=== PATIENT | female | born 1990 ===

== ENCOUNTER 2018-05-16 09:38 | Emergency (ER) | payer BC, OTHER ==
--- NOTE | 2018-05-16 09:43 | ED PDOC ---
Arrival/HPI - General Chief Complaint: Female Genitourinary Time Seen by Provider: 05/16/18 09:50 Historian: Patient - History of Present Illness Narrative History of Present Illness (Text): 05/16/18 09:54 27 y/o female with no significant PMH presents to the ED c/o vaginal spotting x 2 weeks. LMP 04/23/18. States her menstruation typically lasts 7 days and stops. This time, after her menstruation ended, she experienced light vaginal spotting starting on 05/04/18 that has not ceased. Associated intermittent white/yellow vaginal discharge. Denies fevers, chills, N/V, abdominal pain, diarrhea, constipation, headache, dizziness, vaginal itching, pelvic pain, back pain, chest pain, SOB, or any other associated symptoms. Past Medical History - Provider Review Nursing Documentation Reviewed: Yes - Infectious Disease Hx of Infectious Diseases: None - Psychiatric Hx Psychophysiologic Disorder: No Hx Substance Use: No - Surgical History Other/Comment: circulage - Anesthesia Hx Anesthesia: Yes Hx Anesthesia Reactions: No - Suicidal Assessment Feels Threatened In Home Enviroment: No Family/Social History - Physician Review Nursing Documentation Reviewed: Yes Family/Social History: No Known Family HX Smoking Status: Never Smoked Hx Alcohol Use: Yes Hx Substance Use: No Allergies/Home Meds Allergies/Adverse Reactions: Allergies No Known Allergies Allergy (Verified 05/16/18 09:46) Review of Systems - Physician Review All systems were reviewed & negative as marked: Yes - Review of Systems Constitutional: Normal. absent: Fevers Eyes: Normal. absent: Vision Changes, Photophobia ENT: Normal Respiratory: Normal. absent: SOB, Cough Cardiovascular: Normal Gastrointestinal: Normal Genitourinary Female: Vaginal Bleeding Musculoskeletal: Normal Skin: Normal Neurological: Normal Endocrine: Normal Hemo/Lymphatic: Normal Psychiatric: Anxiety Physical Exam Vital Signs Reviewed: Yes Temperature: Afebrile Blood Pressure: Normal Pulse: Regular Respiratory Rate: Normal Appearance: Positive for: Well-Appearing, Non-Toxic, Comfortable Pain Distress: None Mental Status: Positive for: Alert and Oriented X 3 - Systems Exam Head: Present: Atraumatic, Normocephalic Pupils: Present: PERRL Extroacular Muscles: Present: EOMI Conjunctiva: Present: Normal Mouth: Present: Moist Mucous Membranes Neck: Present: Normal Range of Motion. No: Meningeal Signs, MIDLINE TENDERNESS, Paraspinal Tenderness, JVD Respiratory/Chest: Present: Clear to Auscultation, Good Air Exchange. No: Respiratory Distress, Accessory Muscle Use Cardiovascular: Present: Regular Rate and Rhythm, Normal S1, S2. No: Murmurs Abdomen: Present: Normal Bowel Sounds. No: Tenderness, Distention, Peritoneal Signs, Rebound, Guarding Genitourinary/Pelvic Exam: Present: Normal External Genitalia, Vaginal Discharge (moderate amount white discharge), Vaginal Bleeding (small amount bright red blood ), Cervical os Closed. No: Vaginal Lesions, Adenexal Tenderness, Adenexal Mass, Cervical Motion Tendernes, Odor Back: Present: Normal Inspection. No: CVA Tenderness, Midline Tenderness, Paraspinal Tenderness Upper Extremity: Present: Normal Inspection, Normal ROM, NORMAL PULSES, Neurovascularly Intact, Capillary Refill < 2s. No: Cyanosis, Edema Lower Extremity: Present: Normal Inspection, NORMAL PULSES, Normal ROM, Neurovascularly Intact, Capillary Refill < 2 s. No: Edema Neurological: Present: GCS=15, CN II-XII Intact, Speech Normal, Motor Func Grossly Intact, Normal Sensory Function, Gait Normal Skin: Present: Warm, Dry, Normal Color. No: Rashes Lymphatic: No: Cervical Adenopathy Psychiatric: Present: Alert, Oriented x 3, Normal Insight, Normal Concentration, Normal Affect, Anxious Medical Decision Making ED Course and Treatment: 05/16/18 09:41 Initial Plan: * POC urine preg * UA, culture * CBC, CMP * GC/Chlamydia * TV Ultrasound Labwork unremarkable UA significant for leuk esterase and WBC, will treat for UTI TV Ultrasound negative for acute pathology Patient refusing empiric treatment for gonorrhea and chlamydia, states she will come back to be treated if testing is positive. Diagnostic testing results and plan of care discussed with patient. Strict instructions given regarding prescription use, importance of followup, and signs/symptoms to return to ER including pelvic pain, fever, chills, abdominal pain, N/V, or any other new/worsening symptoms. Pt verbalized understanding of discussion. Patient is A&Ox3, ambluating with steady gait, with vital signs stable for discharge. - Lab Interpretations Lab Results: 05/16/18 10:40 05/16/18 10:40 Lab Results 05/16/18 10:40: Sodium 139, Potassium 4.4, Chloride 107, Carbon Dioxide 27, A nion [place] 9 L, BUN 13, Creatinine 0.6 L, Est GFR ( Amer) > 60, Est GFR (Non-Af Amer) > 60, Random Glucose 103, Calcium 9.2, Total Bilirubin 0.2, AST 25, ALT 30, Alkaline Phosphatase 74, Total Protein 7.8, Albumin 4.4, Globulin 3.4, Albumin/Globulin Ratio 1.3 05/16/18 10:40: Urine Color Yellow, Urine Appearance Sl cloudy, Urine pH 6.0, Ur Specific [place] >= 1.030, Urine Protein Negative, Urine Glucose (UA) Negative, Urine Ketones Negative, Urine Blood Moderate H, Urine Nitrate Negative, Urine Bilirubin Negative, Urine Urobilinogen 0.2, Ur Leukocyte Esterase Small H, Urine RBC 0 - 2, Urine WBC 5 - 10 H, Ur Epithelial Cells 4 - 5, Urine Bacteria Mod 05/16/18 10:40: WBC 4.7, RBC 4.53, Hgb 11.7 L, Hct 35.7 L, MCV 78.8 L, MCH 25.8, MCHC 32.8, RDW 13.5, Plt Count 296, MPV 8.9, Gran % 46.7 L, Lymph % (Auto) 46.1 H, [place] % (Auto) 4.7, Eos % (Auto) 2.1, Baso % (Auto) 0.4, Gran # 2.21, Lymph # (Auto) 2.2, [place] # (Auto) 0.2, Eos # (Auto) 0.1, Baso # (Auto) 0.02 I have reviewed the lab results: Yes - RAD Interpretation Narrative RAD Interpretations (Text): 05/16/18 12:32 Transvaginal Ultrasound FINDINGS: UTERUS: Measures 6.1 x 3.2 x 3.6 cm. Everted. Normal in size and appearance. No fibroid or other mass lesion seen. ENDOMETRIUM: Measures 11 mm in diameter. Unremarkable. CERVIX: Nabothian cysts. No cervical abnormality identified. RIGHT OVARY: Measures 2.2 x 1.4 x 1.9 cm. Involuting corpus luteal follicle measuring 1.2 x 0.7 x 0.8 cm. No solid mass. Normal flow. LEFT OVARY: Measures 1.9 x 1.1 x 1.1 cm. No solid mass. Normal flow. FREE FLUID: Trace free-fluid. OTHER FINDINGS: None. IMPRESSION: Unremarkable pelvic ultrasound. Involuting right corpus luteal follicle. Trace free fluid, likely physiologic. Supervisor Residential: Radiologist Disposition/Present on Arrival - Present on Arrival Any Indicators Present on Arrival: No History of DVT/PE: No History of Uncontrolled Diabetes: No Urinary Catheter: No History of Decub. Ulcer: No - Disposition Have Diagnosis and Disposition been Completed?: Yes Diagnosis: Vaginal bleeding, UTI (urinary tract infection) Disposition: HOME/ ROUTINE Disposition Time: 12:55 Patient Plan: Discharge Condition: STABLE Discharge Instructions (ExitCare): Urinary Tract Infections in Adults Additional Instructions: Take antibiotic every 12 hours x 7 days Increase fluids Followup with OBGYN within 2 days Return to ER with any new/worsening symptoms Prescriptions: Cephalexin [Keflex] 500 mg PO Q12H 7 Days #13 capsule Referrals: [facility] [place] [Outside] - [facility] with [facility] [Outside] - Follow up with primary Brandt Pizarro [Medical Doctor] - Follow up with primary Darleen Frazier MD [Medical Doctor] - Follow up with primary Forms: [employer] (Croatian), WORK NOTE
[2018-05-16 09:47] VITALS: RESP 18; TEMP 98
[2018-05-16] MEDS ORDERED: Sodium Chloride 0.9% 1,000 ML IV STA (10:39)
[2018-05-16 11:04] LABS: URINE APPEARANCE SL CLOUDY (CLEAR); URINE BILIRUBIN NEGATIVE (NEGATIVE); URINE BLOOD MODERATE (NEGATIVE); URINE COLOR YELLOW (YELLOW); URINE GLUCOSE (UA) NEGATIVE (NEGATIVE); URINE LEUKOCYTE ESTERASE SMALL Leu/uL (NEGATIVE); URINE PROTEIN NEGATIVE mg/dL (<30 mg/dL); URINE UROBILINOGEN 0.2 E.U./dL (<1 E.U./dL)
[2018-05-16 11:05] LABS: BASO # 0.02 K/mm3 (0.0-2.0); BASO % 0.4 % (0.0-3.0); EOS # 0.1 (0.0-0.7); EOS % 2.1 % (1.5-5.0); GRAN # 2.21 (1.4-6.5); GRAN % 46.7 % (50.0-68.0); HEMOGLOBIN 11.7 g/dL (12.0-16.0); LYMPH # 2.2 (1.2-3.4); LYMPH % 46.1 % (22.0-35.0); MEAN CELL VOLUME 78.8 fl (80.0-105.0); MEAN CORPUSCULAR HEMOGLOBIN 25.8 pg (25.0-35.0); MEAN CORPUSCULAR HGB CONC 32.8 g/dl (31.0-37.0); MEAN PLATELET VOLUME 8.9 fl (7.0-11.0); MONO # 0.2 (0.1-0.6); MONO % 4.7 % (1.0-6.0); RBC 4.53 10^6/uL (3.5-6.1); RED CELL DISTRIBUTION WIDTH 13.5 % (11.5-14.5); WHITE BLOOD COUNT 4.7 10^3/uL (4.5-11.0)
[2018-05-16 11:12] LABS: URINE BACTERIA MOD /hpf; URINE RBC 0 - 2 /hpf (0-2)
[2018-05-16 11:13] LABS: ALB/GLOB RATIO 1.3 (1.1-1.8); ALBUMIN 4.4 g/dL (3.0-4.8); ALT/SGPT 30 U/L (7-56); AST/SGOT 25 U/L (14-36); BLOOD UREA NITROGEN 13 mg/dL (7-21); CALCIUM 9.2 mg/dL (8.4-10.5); GFR NON-AFRICAN AMERICAN > 60
--- NOTE | 2018-05-16 12:26 | US ---
Date of service: 05/16/2018 HISTORY: vaginal bleeding COMPARISON: None available. TECHNIQUE: Grayscale, color Doppler and spectral evaluation the pelvis performed transabdominally and transvaginally. FINDINGS: UTERUS: Measures 6.1 x 3.2 x 3.6 cm. Everted. Normal in size and appearance. No fibroid or other mass lesion seen. ENDOMETRIUM: Measures 11 mm in diameter. Unremarkable. CERVIX: Nabothian cysts. No cervical abnormality identified. RIGHT OVARY: Measures 2.2 x 1.4 x 1.9 cm. Involuting corpus luteal follicle measuring 1.2 x 0.7 x 0.8 cm. No solid mass. Normal flow. LEFT OVARY: Measures 1.9 x 1.1 x 1.1 cm. No solid mass. Normal flow. FREE FLUID: Trace free-fluid. OTHER FINDINGS: None. IMPRESSION: Unremarkable pelvic ultrasound. Involuting right corpus luteal follicle. Trace free fluid, likely physiologic.
[2018-05-16 13:10] VITALS: BP 116/77; PULSE 87; O2SAT 100
== END 2018-05-16 13:10 | disposition home or self-care (01) ==
LOC: ED 09:38
DX: N93.9 Abnormal uterine and vaginal bleeding, unspecified (principal); N39.0 Urinary tract infection, site not specified
CPT/HCPCS: 76830; 80053; 81001; 85025; 87086; 87491; 87591; 99283; J7030

== ENCOUNTER 2018-05-21 17:35 | Emergency (ER) | payer OTHER ==
--- NOTE | 2018-05-21 17:38 | ED PDOC ---
Arrival/HPI - General Historian: Patient - History of Present Illness Narrative History of Present Illness (Text): 05/21/18 17:36 27 y/o female, here today because she received a call back from the ER as she was tested positive for chlamydia. Pt. is sexually active, no vaginal bleeding or discharge, no pelvic or abdominal pain, no numbness or tingling, no urinary symptoms, was on keflex and urine culture is negative, no homocidal/suicidal ideation, no auditory or visual hallucination, no other medical or psychological complaints. Past Medical History - Provider Review Nursing Documentation Reviewed: Yes - Infectious Disease Hx of Infectious Diseases: None - Hematological/Oncological Hx Anemia: Yes - Psychiatric Hx Psychophysiologic Disorder: No Hx Substance Use: No - Surgical History Other/Comment: circulage - Anesthesia Hx Anesthesia: Yes Hx Anesthesia Reactions: No - Suicidal Assessment Feels Threatened In Home Enviroment: No Family/Social History - Physician Review Nursing Documentation Reviewed: Yes Family/Social History: Unknown Family HX Smoking Status: Never Smoked Hx Alcohol Use: Yes Hx Substance Use: No Allergies/Home Meds Allergies/Adverse Reactions: Allergies No Known Allergies Allergy (Verified 05/16/18 09:46) Review of Systems - Review of Systems Constitutional: absent: Fatigue, Fevers Eyes: absent: Vision Changes ENT: absent: Hearing Changes Respiratory: absent: SOB, Cough Cardiovascular: absent: Chest Pain Gastrointestinal: absent: Abdominal Pain, Nausea, Vomiting Musculoskeletal: absent: Arthralgias, Back Pain Skin: absent: Rash, Pruritis Neurological: absent: Headache, Dizziness Psychiatric: absent: Anxiety, Depression Physical Exam - Systems Exam Head: Present: Atraumatic, Normocephalic Pupils: Present: PERRL Extroacular Muscles: Present: EOMI Conjunctiva: Present: Normal Mouth: Present: Moist Mucous Membranes Neck: Present: Normal Range of Motion Respiratory/Chest: Present: Clear to Auscultation, Good Air Exchange. No: Respiratory Distress, Accessory Muscle Use Cardiovascular: Present: Regular Rate and Rhythm, Normal S1, S2. No: Murmurs Abdomen: No: Tenderness, Distention, Peritoneal Signs Back: Present: Normal Inspection Upper Extremity: Present: Normal Inspection. No: Cyanosis, Edema Lower Extremity: Present: Normal Inspection. No: Edema Neurological: Present: GCS=15, CN II-XII Intact, Speech Normal Skin: Present: Warm, Dry, Normal Color. No: Rashes Psychiatric: Present: Alert, Oriented x 3, Normal Insight, Normal Concentration Medical Decision Making ED Course and Treatment: 05/21/18 17:38 -I advised the patient to notify all her sexual partners for the STD prophylatic treatment and testing, Pt. verbally expressed understanding. -Rocephine and azithromycin 05/21/18 17:54 -Discharge home with education on repeat the gonorrhea/chlamydia test after 1 week with your own pmd and notify all your sexual partners for the STD testing and prophylatic treatment, return to the ER for any new or worsening signs or symptoms. - PA / AMMUNITION OFFICER / Resident Statement / has reviewed & agrees with the documentation as recorded. Disposition/Present on Arrival - Present on Arrival Any Indicators Present on Arrival: No History of DVT/PE: No History of Uncontrolled Diabetes: No Urinary Catheter: No History of Decub. Ulcer: No History Surgical Site Infection Following: None - Disposition Have Diagnosis and Disposition been Completed?: Yes Diagnosis: Chlamydia Disposition: HOME/ ROUTINE Disposition Time: 17:54 Patient Plan: Discharge Patient Problems: Current Active Problems Problem Status Onset Chlamydia Acute Condition: GOOD Additional Instructions: -Discharge home with education on repeat the gonorrhea/chlamydia test after 1 week with your own pmd and notify all your sexual partners for the STD testing and prophylatic treatment, return to the ER for any new or worsening signs or symptoms. Referrals: [facility] [place] - Follow up with primary Forms: WORK NOTE
[2018-05-21] MEDS ORDERED: cefTRIAXone (Rocephin) 250 mg Inj IM STA (17:53)
[2018-05-21 18:03] VITALS: BP 113/76; RESP 18; TEMP 98.7; O2SAT 99
[2018-05-21 18:45] VITALS: PULSE 72
== END 2018-05-21 18:43 | disposition home or self-care (01) ==
LOC: ED 17:35
DX: A74.9 Chlamydial infection, unspecified (principal)
CPT/HCPCS: 96372; 99282; J0696